=== PATIENT | female | born 1955 | race Caucasian/White ===

== ENCOUNTER 2021-11-14 08:55 | Outpatient (CLI) | payer BC | END 2021-11-14 08:56 | disposition home or self-care (01) | LOC: CSHMAMMO 08:55 | PROVIDERS: ATTEND Student in an Organized Health Care Education/Training Program | DX: Z12.31 Encounter for screening mammogram for malignant neoplasm of breast (principal) | CPT/HCPCS: 77063; 77067 ==

== ENCOUNTER 2024-01-11 12:14 | Outpatient (CLI) | payer OTHER | END 2024-01-11 12:15 | disposition home or self-care (01) | LOC: CSHMAMMO 12:14 | PROVIDERS: ATTEND Family Medicine | DX: Z12.31 Encounter for screening mammogram for malignant neoplasm of breast (principal) | CPT/HCPCS: 77063; 77067 ==

== ENCOUNTER 2024-12-19 12:53 | Outpatient (CLI) | payer MEDICARE ==
[2024-12-19 13:16] LABS: Estimated GFR - POC 80.0
== END 2024-12-19 12:54 | disposition home or self-care (01) ==
LOC: CSHMRI 12:53
PROVIDERS: ATTEND Student in an Organized Health Care Education/Training Program
DX: K76.9 Liver disease, unspecified (principal); K76.89 Other specified diseases of liver; K76.0 Fatty (change of) liver, not elsewhere classified
CPT/HCPCS: 36415; 74183; 82565